=== PATIENT | male | born 1940 ===

== ENCOUNTER 2019-11-03 08:42 | Day surgery (SDC) | payer MEDICARE, OTHER ==
[~2019-11-03 08:42] MED LIST: Lactated Ringers 1,000 ML IV SCH; cefOXitin 2 GM in Premix Bag 1 BAG IV ONE
--- NOTE | 2019-11-03 09:37 | PCM.PREANE ---
Preanesthetic Assessment - Anesthesia/Transfusion/Family Hx Anesthesia History: Prior Anesthesia Without Reaction Family History of Anesthesia Reaction: No Transfusion History: No Prior Transfusion(s) Intubation History: Unknown - Review of Systems General: No Symptoms Pulmonary: No Symptoms Cardiovascular: No Symptoms Gastrointestinal: Constipation, Other (weight loss) Neurological: No Symptoms Other: Reports: None - Physical Assessment Height: 5 ft 9 in Weight: 69.853 kg ASA Class: 3 Mental Status: Alert & Oriented x3 Airway Class: Mallampati = 2 Dentition: Reports: Normal Dentition (grinded edges on all teeth) Thyro-Mental Finger Breadths: 3 Mouth Opening Finger Breadths: 3 ROM/Head Extension: Limited/Partial Lungs: Clear to Auscultation, Normal Respiratory Effort Cardiovascular: Regular Rate, Regular Rhythm - Allergies Allergies/Adverse Reactions: Allergies Allergy/AdvReac Type Severity Reaction Status Date / Time No Known Allergies Allergy Verified 10/30/19 14:43 - Blood Blood Available: No - Anesthesia Plan Pre-Op Medication Ordered: None - Acknowledgements Anesthesia Type Planned: MAC Pt an Appropriate Candidate for the Planned Anesthesia: Yes Alternatives and Risks of Anesthesia Discussed w Pt/Guardian: Yes Pt/Guardian Understands and Agrees with Anesthesia Plan: Yes PreAnesthesia Questionnaire HEENT History: Reports: Macular Degeneration, Other (See Below) Other HEENT History: wears glasses Cardiovascular History: Reports: High Cholesterol, Hypertension Other Cardiovascular History: was taken off hypertensive medications 1 month ago, h/o PE 4 years ago after foot surgery - not on any blood thiners now Respiratory History: Reports: Asthma, COPD, Sleep Apnea Other Respiratory History: only uses rescue inhaler during the fall, uses CPAP Gastrointestinal History: Reports: Colon Polyp, Diverticulosis Other Gastrointestinal History: hx diverticulosis Musculoskeletal History: Reports: Fracture, Gout, Neck Pain, Chronic, Osteoarthritis Other Musculoskeletal History: hx of fx wrist Psychiatric History: Reports: Anxiety Hematologic History: Reports: None Oncologic (Cancer) History: Reports: Prostate - Past Surgical History Head Surgeries/Procedures: Reports: None GI Surgical History: Reports: Colonoscopy (x2, last one in '09) Male Surgical History: Reports: Prostatectomy (robotic), Vasectomy Other Male Surgeries/Procedures: hx of prostate cancer Neurological Surgical History: Reports: Lumbar Spine Musculoskeletal Surgical History: Reports: Knee Replacement, ORIF Other Musculoskeletal Surgeries/Procedures:: bilateral TKA about about 25 years ago, ORIF right wrist (has hardware), reconstruction of both feet due to arthritis (left foot has plate and screws) Other Oncologic Surgeries/Procedures: hx of radical Prostatectomy, "scraping" of skin cancer- unknown type Dermatological Surgical History: Reports: Skin Biopsy - SUBSTANCE USE Smoking Status *Q: Never Smoker Recreational Drug Use History: No - HOME MEDS Home Medications: Home Meds Allopurinol [Zyloprim] 300 mg PO DAILY 03/04/16 [History] Aspirin [[place] Aspirin EC] 81 mg PO DAILY 03/04/16 [History] Cetirizine HCl [Zyrtec] 10 mg PO DAILY 03/04/16 [History] Indomethacin 50 mg PO DAILY 03/04/16 [History] Simvastatin [Zocor] 20 mg PO DAILY 03/04/16 [History] Calcium Carbonate/Vitamin D3 [Calcium 600 + Vit D 400 Softgl] 1 cap PO DAILY 10/30/19 [History] Cholecalciferol (Vitamin D3) [Vitamin D3] 1,000 unit PO DAILY 10/30/19 [History] Fluticasone/Salmeterol [Advair 250-50] 1 puff INH BID 10/30/19 [History] Incruse Ellipta 62.5 mcg INH QAM 10/30/19 [History] Potassium Gluconate [Potassium] 99 mg PO DAILY 10/30/19 [History] - CURRENT (IN HOUSE) MEDS Current Meds: Current Medications Lactated Ringer's (Ringers, Lactated) 1,000 mls @ 125 mls/hr IV ASDIRECTED IVETTE Discontinued Medications Cefoxitin Sodium 2 gm/ Premix 50 mls @ 100 mls/hr IV ONETIME ONE Stop: 11/03/19 08:59
[2019-11-03] MEDS ORDERED: Propofol 200 MG/20 ML SDV ONE (10:26)
[2019-11-03] MEDS ORDERED: fentaNYL 100 MCG/2 ML SDV ONE (10:26)
[2019-11-03] MEDS ORDERED: Lidocaine 2% 5 ML SDV ONE (10:26)
[2019-11-03] MEDS ORDERED: Lactated Ringers 1,000 ML IV SCH (11:15)
--- NOTE | 2019-11-03 11:15 | PCM.OPNOTE ---
- General Post-Op/Procedure Note Date of Surgery/Procedure: 11/03/19 Operative Procedure(s): Colonoscopy Pre Op Diagnosis: Change in bowel habits. Unexplained weight loss. Post-Op Diagnosis: Sigmoid diverticulosis Anesthesia Technique: MAC (ASA III) Primary Surgeon: Colin Linn Condition: Good Free Text/Narrative:: DICTATION [id number] CPT CODE 46623
--- NOTE | 2019-11-03 11:40 | PCM.POSTAN ---
POST ANESTHESIA ASSESSMENT - MENTAL STATUS Mental Status: Alert, Oriented - VITAL SIGNS Vital Signs: Last Vital Signs Temp 36.1 C 11/03/19 08:45 Pulse 56 L 11/03/19 11:32 Resp 15 11/03/19 11:32 BP 120/65 11/03/19 11:32 Pulse Ox 96 11/03/19 11:32 - RESPIRATORY Respiratory Status: Respiratory Rate WNL, Airway Patent, O2 Saturation Stable - CARDIOVASCULAR CV Status: Pulse Rate WNL, Blood Pressure Stable - GASTROINTESTINAL GI Status: No Symptoms - PAIN Pain Score: 0 - POST OP HYDRATION Hydration Status: Adequate & Stable - OBSERVATIONS Free Text/Narrative:: No anesthesia problems
--- NOTE | 2019-11-03 12:01 | PCM48HPAN ---
Post Anesthesia Note - EVALUATION WITHIN 48HRS OF ANESTHETIC Vital Signs in Normal Range: Yes Patient Participated in Evaluation: Yes Respiratory Function Stable: Yes Airway Patent: Yes Cardiovascular Function Stable: Yes Hydration Status Stable: Yes Pain Control Satisfactory: Yes Nausea and Vomiting Control Satisfactory: Yes Mental Status Recovered: Yes Vital Signs: Last Vital Signs Temp 36.1 C 11/03/19 08:45 Pulse 56 L 11/03/19 11:32 Resp 15 11/03/19 11:32 BP 120/65 11/03/19 11:32 Pulse Ox 96 11/03/19 11:32 - COMMENTS/OBSERVATIONS Free Text/Narrative:: No anesthesia problems
[2019-11-03 13:12] VITALS: BP 145/70; PULSE 59
--- NOTE | 2019-11-03 13:32 | OR ---
SURGEON: Colin Linn M.D. DATE OF PROCEDURE: 11/03/2019 OPERATION PERFORMED: Colonoscopy. PRIMARY SURGEON: Colin Linn M.D. ANESTHESIA: MAC. ASA CLASSIFICATION: III. PREOPERATIVE DIAGNOSES: 1. Change in bowel habits. 2. Unexplained weight loss. POSTOPERATIVE DIAGNOSIS: Sigmoid diverticulosis. DESCRIPTION OF PROCEDURE: The patient was taken to the endoscopy room and positioned on the endoscopy table in the left lateral decubitus position. Time-out was called for appropriate identification of the patient and procedure. Monitored anesthesia care was provided. The colonoscope was inserted into the rectum and advanced with minimal difficulty to the cecum. The cecum was identified by internal landmarks and external pressure. The colonoscope was retroflexed to visualize the ascending colon from below, then straightened and slowly withdrawn. Cecum, ascending colon, hepatic flexure, transverse colon, splenic flexure, and descending colon showed no tumors, polyps, diverticula, or angiodysplastic changes. The prep was excellent. Good visualization was able to be obtained. Sigmoid colon demonstrates a few scattered sigmoid diverticula. No stricture, spasm, or bleeding was noted. No polyps were encountered in the sigmoid colon. The colonoscope was then withdrawn to the rectum and retroflexed to visualize the anal orifice from above. Again, no tumors or polyps were seen, and there were no acute hemorrhoidal changes. The colonoscope was then straightened, the rectum aspirated, and the colonoscope removed. The patient tolerated the procedure well and was taken to recovery room in stable condition. MARK / HUAN /[id number]
== END 2019-11-03 12:00 | disposition home or self-care (01) ==
LOC: MW.SDS 08:42
PROVIDERS: ATTEND Surgery
DX: K57.30 Diverticulosis of large intestine without perforation or abscess without bleeding (principal); E78.00 Pure hypercholesterolemia, unspecified; I10 Essential (primary) hypertension; J44.9 Chronic obstructive pulmonary disease, unspecified; G47.30 Sleep apnea, unspecified; F41.9 Anxiety disorder, unspecified; Z79.899 Other long term (current) drug therapy; Z79.82 Long term (current) use of aspirin; Z86.010 Personal history of colon polyps; Z72.89 Other problems related to lifestyle; Z85.46 Personal history of malignant neoplasm of prostate; Z80.3 Family history of malignant neoplasm of breast; Z90.79 Acquired absence of other genital organ(s)
CPT/HCPCS: 45378; J2001; J2704; J3010; J7120; 00811